=== PATIENT | male | born 1955 | race Caucasian/White ===

== ENCOUNTER 2024-09-11 11:02 | Observation (INO) | payer OTHER, MEDICARE ==
[2024-09-11] VITALS (38 sets, daily range): BP systolic 68–126; BP diastolic 35–108
[~2024-09-11] VITALS: Ht 182.9 cm; Wt 79.6 kg
--- NOTE | 2024-09-11 11:02 | NUR ---
TO ROOM VIA EMS
[2024-09-11] MEDS ORDERED: IPRATROPIUM-Albuterol 0.5MG-2.5MG/3 ML NEB ONE (11:15)
[2024-09-11] MEDS ORDERED: ASPIRIN 81 MG/TAB PO PRN (11:15)
--- NOTE | 2024-09-11 11:20 | NUR ---
AT BEDSIDE FOR DETAILED EXAM. PT RESTING ON STRTCHER O2 VIA N/C, PLACED ON SMOKE ROOM OPERATOR, HOB ELEVTED.
--- NOTE | 2024-09-11 11:31 | NUR ---
r/t, lab at bedside. pt tolerates well.
[2024-09-11 11:51] LABS: BASO% 0.1 % (0-3); EOS% 0.1 % (0-8); HEMATOCRIT 49.9 % (39.0-50.0); HEMOGLOBIN 16.3 g/dl (14.0-18.0); IMMATURE GRANULOCYTES 0.2 % (0.0-5.0); LYMPH% 10.6 % (15-41); MEAN CELL VOLUME 99.8 fL CALC (80.0-100.0); MEAN CORPUSCULAR HGB 32.6 pG CALC (26.0-32.0); MEAN CORPUSCULAR HGB CONC 32.7 g/dL CAL (32.0-36.0); MONO% 10.9 % (2-13); NEUT# 6.6 thou/uL (1.82-7.42); NEUT% 78.1 % (42-76); RED CELL DISTRI WIDTH 13.5 % (11.5-15.5)
--- NOTE | 2024-09-11 11:56 | NUR ---
R/T AT BEDSIDE, PLAN OF CARE INCLUDED BPAP. PT VERBALIZES UNDERSTANDING.
[2024-09-11 12:04] LABS: BILIRUBIN, TOTAL 1.3 mg/dL (0.2-1.3); CREATININE 0.7 mg/dL (0.7-1.3); POTASSIUM 3.8 mmol/l (3.5-5.1); TOTAL PROTEIN 7.3 g/dL (6.3-8.2)
[2024-09-11] MEDS ORDERED: SODIUM CHLORIDE 0.9% 1,000 ML IV ONE (12:15)
--- NOTE | 2024-09-11 12:15 | NUR ---
PT CONTINUES TO IMPROVE, R/T AT BEDSIDE, MONITOR IN PLACE. PT CONTINUES TO IMPROVE.
--- NOTE | 2024-09-11 12:50 | NUR ---
PT RESTING, BI-PAP CONTINUES TO MAKE PT MORE COMFORTABLE. MONITOR IN PLACE.
--- NOTE | 2024-09-11 13:30 | NUR ---
PT MEDICATED PER MD ORDER. PT CONTINUES TO IMPROVE BI-PAP IN PLACE, PT TOLERATES WELL
[2024-09-11] MEDS ORDERED: Iopamidol 370 (Isovue) 76% 100 ML SDV IV ONE (13:35)
[2024-09-11] MEDS ORDERED: LORazepam 2 MG/ML IV ONE (13:35)
[2024-09-11] MEDS ORDERED: cloNIDine HCL 0.1 MG/TAB PO ONE (13:45)
--- NOTE | 2024-09-11 13:45 | NUR ---
PT CONTINUES TO IMPOVE, PT TO C/T VIA STRETCHER R/T AT BEDSIDE. MONITOR IN PLACE, PT TOLERATES WELL.
--- NOTE | 2024-09-11 14:10 | NUR ---
PT RETURNS FROM C/T MADE COMFORTABLE.R/T AT BEDSIDE. PT CONTINUES TO IMPROVE, REMAINS ON MONITOR
--- NOTE | 2024-09-11 14:45 | NUR ---
PT REASSESSMENT COMPLETE, PT IN O ACUTE DISTRESS. PT REMAINS STABLE, MONITOR IN PLACE.
--- NOTE | 2024-09-11 15:15 | NUR ---
MD AT BEDSIDE, DETAILED EXPLAINATION OF FINDINGS, PLAN OF CARE ETC. PT DEIES QUESTION OR CONCERN. PT REMAINS STABLE.
--- NOTE | 2024-09-11 15:50 | NUR ---
R/T AT BEDSIDE, PT RESTING WITH BI-PAP IN PLACE, NO DISTRESS AT THIS TIME. MONITOR IN PLACE, PT CONDITION IMPROVING
--- NOTE | 2024-09-11 16:15 | NUR ---
TRANSPORTED PT TO ICU WITH R/T AT BEDSIDE. PT REMAINS STABLE, DENIES ANY NEEDS AT COMPLETION BEDSIDE REPORT TO STAFF, DENIES QUESTION UPON COMPLETION.
--- NOTE | 2024-09-11 16:20 | NUR ---
PT UNABLE TO PROVIDE A LIST OF HOME MEDS, PT STATES HE'LL BE ABLE TO PROVIDE IT TOMORROW
--- NOTE | 2024-09-11 16:30 | NUR ---
REPORT TO ICU STAFF, DENY QUESTIONS UPON COMPLETIN. PT CONTINUES TO IMPROVE. PT REMAINS ON BIPAP, MONITOR. DENIES ANY NEEDS AT THIS TIME.
--- NOTE | 2024-09-11 16:59 | NUR ---
PATIENT ARRIVED TO ICU VIA BED; AMBULATED TO BED WITH ASSIT; RT IN ROOM WITH PATINET; HEAD TO TOE COMPLETED; PERSONAL ITEMS IN ROOM; DENIED ANY PAIN; DENIED ANY N/V/D AT THIS TIME; IV SITE CLEAN AND INTACT RUNNING WITH NS @100; NO S.S OF DISTRESS;ARM BAND APPLIED; CALL LIGHT WITHIN REACH; BED IN LOWET POSTION;SFAETY MEASURES IN PLACE; PRODUCTIV COUGH
[2024-09-11] MEDS ORDERED: IPRATROPIUM-Albuterol 0.5MG-2.5MG/3 ML NEB PRN (17:30)
[2024-09-11] MEDS ORDERED: MAGNESIUM HYDROXIDE 30 ML UDC PO PRN (17:35)
[2024-09-11] MEDS ORDERED: SODIUM CHLORIDE 0.9% 1,000 ML IV SCH (17:35)
[2024-09-11] MEDS ORDERED: ACETAMINOPHEN 325 MG/TAB PO PRN (17:35)
[2024-09-11] MEDS ORDERED: SODIUM CHLORIDE 0.9% 1,000 ML IV PRN (17:35)
--- NOTE | 2024-09-11 17:40 | NUR ---
PATIENT BLOOD PRESSURE IS 68/44 , WRITTER STARTED BOLUSING ONE LITER OF NS; PUT PATIENT IN [place] POSTION; CALLED DR. FRANDY REDDING TO OVERRIDE FLUIDS TO BOLUS AND NOTIFY AFTER FLUIDS UPDATE ON BLOOD PRESSURE
--- NOTE | 2024-09-11 18:15 | NUR ---
RECHECKED BLOOD PRESSURE 96/60 UPDATED PROVIDER OF PATINT BLOOD PRESSURE, CONTINUED TO BOLUS AT THISTIME; DIET ORDER WAS IN PLACE AWAITING DINNER TRAY; ON 4 L ; DENIED ANY ISSUES; DENIED ANY PAIN; CALL LIGHT WITHIN REACH; BED IN LOWEST POSTION;SAFTEY MEASURES IN PLACE
--- NOTE | 2024-09-11 18:17 | NUR ---
UNABLE TO PRINT WOUND PHOTO, DAVON DOES HAVE A STAGE TWO ULCER ON HIS RIGHT SACRUM AREA; NO DRAINAGE AT THIS TIME,NO ODOR AT THIS TIME
[2024-09-11] MEDS ORDERED: AZITHROMYCIN 500 MG in SODIUM CHLORIDE 0.9% 500 ML IV SCH (20:00)
--- NOTE | 2024-09-11 20:00 | NUR ---
[id number] awakens easily. no resp distress. o2 cont per nc. hob remains elevated. school lunch monitor shows sinus rhythm. ivf infusing well. voided per urinal. supper meal given & he ate all. fall precautions cont.
[2024-09-11] MEDS ORDERED: methylPREDNISolone Sod Succ 40 MG/ML SDV IV SCH (21:00)
[2024-09-11] MEDS ORDERED: ENOXAPARIN SODIUM 40 MG/0.4 ML SYR SC SCH (21:00)
[2024-09-11 21:57] LABS: URINE BILIRUBIN - DIPSTICK Negative (NEGATIVE); URINE BLOOD DIPSTICK Negative (NEGATIVE); URINE COLOR Yellow; URINE GLUCOSE - DIPSTICK Negative (NEGATIVE); URINE KETONE Trace mg/dL (NEGATIVE); URINE LEUK ESTERASE Negative (NEGATIVE); URINE NITRITE - DIPSTICK Negative (Negative); URINE PH 5.5 (4.5-8.0); URINE PROTEIN - DIPSTICK Negative (NEG-TRACE)
--- NOTE | 2024-09-11 22:00 | NUR ---
eyes closed. no distress. manager cardiac shows sinus rhythm.
[2024-09-12] VITALS (18 sets, daily range): BP systolic 94–115; BP diastolic 58–84
--- NOTE | 2024-09-12 00:01 | NUR ---
eyes closed. no distress.
--- NOTE | 2024-09-12 02:00 | NUR ---
resting qietly. resps een & unlabored. no apparent distress.
--- NOTE | 2024-09-12 05:00 | NUR ---
lab here. blood drawn.
[2024-09-12 05:44] LABS: HEMATOCRIT 44.1 % (39.0-50.0); HEMOGLOBIN 14.5 g/dl (14.0-18.0); MEAN CELL VOLUME 100.5 fL CALC (80.0-100.0); MEAN CORPUSCULAR HGB CONC 32.9 g/dL CAL (32.0-36.0); RED BLOOD COUNT 4.39 mill/uL (4.70-6.10); RED CELL DISTRI WIDTH 13.6 % (11.5-15.5)
[2024-09-12 06:01] LABS: CREATININE 0.6 mg/dL (0.7-1.3); MAGNESIUM 1.8 mg/dL (1.6-2.3)
[2024-09-12 06:07] LABS: ALBUMIN 2.9 g/dL (3.2-5.0); BILIRUBIN, TOTAL 0.5 mg/dL (0.2-1.3); TOTAL PROTEIN 5.7 g/dL (6.3-8.2)
--- NOTE | 2024-09-12 07:11 | NUR ---
PT REPORT RECEIVED FROM SENIOR STOCK PLAN ADMINISTRATOR. VITAL SIGNS STABLE , PT SLEEPING AT THIS TIME, BUT EASILY AROUSABLE WITH VOICE. WILL CONTINUE TO MONITER
[2024-09-12] MEDS ORDERED: ALPRAZolam 0.25 MG PO PRN (08:20)
[2024-09-12] MEDS ORDERED: ASPIRIN EC 81 MG/TAB PO SCH (09:00)
--- NOTE | 2024-09-12 11:59 | NUR ---
respiratory at bedside for neb treatment., spirometry machine given to pt to use. pt alert/oriented, received fax back from [facility] and given to pharmacy.
[2024-09-12] MEDS ORDERED: VITAMIN D-32000 UNI1 PO (12:13)
[2024-09-12] MEDS ORDERED: MULTI VIT PO (12:13)
[2024-09-12] MEDS ORDERED: VENTOLIN HFA108 MCG IN (12:14)
[2024-09-12] MEDS ORDERED: PROTONIX40 MG PO (12:15)
[2024-09-12] MEDS ORDERED: TAMSULOSIN0.4 MG PO (12:15)
[2024-09-12] MEDS ORDERED: XARELTO20 MG PO (12:19)
[2024-09-12] MEDS ORDERED: CARDIZEM CD240 MG PO (12:53)
[2024-09-12] MEDS ORDERED: LISINOPRIL10 MG PO (12:54)
[2024-09-12] MEDS ORDERED: IPRATROPIUM-Albuterol 0.5MG-2.5MG/3 ML NEB SCH (15:00)
--- NOTE | 2024-09-12 15:27 | NUR ---
PT RESTING QUIETLY ON BED, WATCHING TV, DENIES ANY COMPLAINTS AT THIS TIME, VITAL SIGNS STABLE. ALERT/ORIENTED X3, STATES GETTING A LITTLE SLEEPY FROM XANAX HE REQUESTED EARLIER.
[2024-09-12] MEDS ORDERED: RIVAROXABAN 20 MG TAB PO SCH (17:30)
[2024-09-12] MEDS ORDERED: AZITHROMYCIN 500 MG in SODIUM CHLORIDE 0.9% 500 ML IV SCH (20:00)
--- NOTE | 2024-09-12 20:00 | NUR ---
RECEIVED REPORT FROM NURSE JOSE, PATIENT RESTING IN BED. TRNSFERRED FRO ICU AT 1848, IV LFA G 18 NS @ KVO, ON TELEMETRY, LUNG SOUNDS DIMINISHED, PRODUCTIVE COUGH WHITE IN COLOR, ON O2 @ 2LPM VIA NC, NOT IN DISTRESS, REQUSTING XANAX, CALL LIGHT IN REACHED.
[2024-09-12] MEDS ORDERED: guaiFENesin-CODEINE 200-20 MG/10 ML UDC PO PRN (20:45)
--- NOTE | 2024-09-12 23:00 | NUR ---
RT IN ROOM PATIENT ONGOING BREATHING TREATMENDT REMAIN SONO2 @ 4LPM VIA NC CALL LIGHT WITHIN REACHED.
[2024-09-13] VITALS (7 sets, daily range): BP systolic 101–135; BP diastolic 54–87
--- NOTE | 2024-09-13 03:29 | NUR ---
MUNANET RESTING IN BED, REMAINS ON O2 @ 4LPM VIA NC, NOT IN DISTRESS,CALL LIGHT WITHIN REACHED.
[2024-09-13 05:44] LABS: HEMATOCRIT 41.3 % (39.0-50.0); HEMOGLOBIN 13.3 g/dl (14.0-18.0); MEAN CELL VOLUME 100.5 fL CALC (80.0-100.0); MEAN CORPUSCULAR HGB 32.4 pG CALC (26.0-32.0); MEAN CORPUSCULAR HGB CONC 32.2 g/dL CAL (32.0-36.0); RED BLOOD COUNT 4.11 mill/uL (4.70-6.10); RED CELL DISTRI WIDTH 13.6 % (11.5-15.5)
[2024-09-13 06:08] LABS: ALBUMIN 2.6 g/dL (3.2-5.0); BILIRUBIN, TOTAL 0.4 mg/dL (0.2-1.3); CREATININE 0.6 mg/dL (0.7-1.3); MAGNESIUM 2.1 mg/dL (1.6-2.3); TOTAL PROTEIN 5.2 g/dL (6.3-8.2)
--- NOTE | 2024-09-13 07:22 | NUR ---
PATIENT LYING ON LEFT SIDE IN BED WITH EYES CLOSED RESTING. BREATHING UNLABORED ON 4L NC. IV IN LFA INFUSING FLUIDS PER EMAR;SITE CLEAN AND INTACT. NO SIGNS OF DISTRESS OR PAIN NOTED. PERSONAL ITEMS WELL CALL LIGHT NEAR. BED IN LOWEST POSITION. NO NEEDS AT THIS TIME.URINAL WITHIN REACH. POC ONGOING.
[2024-09-13] MEDS ORDERED: TAMSULOSIN HCL 0.4 MG CAP PO SCH (09:00)
[2024-09-13] MEDS ORDERED: PANTOPRAZOLE SODIUM Sesquihydr 40 MG/TAB PO SCH (09:00)
[2024-09-13] MEDS ORDERED: LACTULOSE 20 GM/30 ML UDC PO SCH (10:00)
--- NOTE | 2024-09-13 12:14 | NUR ---
PATIENT SITTING UP IN BED FINISHING LUNCH. BREATHING UNLABORED ON 4L NC. PT STATES TO STILL NOT BE ABLE TO HAVE A BM. ANOTHER DOSE OF MEDICATION PROVIDED PER EMAR. DENIES ANY N/D/V AT THIS TIME. IV IN LFA INFUSING FLUIDS PER EMAR;SITE CLEAN AND INTACT. PT DENIES ANY PAIN. PERSONAL ITEMS WELL CALL LIGHT WITHIN REACH. NO OTHER NEEDS AT THIS TIME. POC ONGOING.
--- NOTE | 2024-09-13 17:00 | NUR ---
PATIENT SITTING ON SIDE OF THE BED. BREATHING UNLABORED ON 4L NC. TELE INTACT. IV IN LFA INFUSING FLUIDS PER EMAR;SITE CLEAN AND INTACT. PT DENIES ANY PAIN OR N/D/V AT THIS TIME. PT STATES TO WANT A SHOWER; IV UNHOOKED AND WRAPPER. NO OTHER NEEDS AT THIS TIME. PERSONAL ITEMS WELL CALL LIGHT WITHIN REACH. BED IN LOWEST POSITION. POC ONGOING.
[2024-09-13] MEDS ORDERED: AZITHROMYCIN 500 MG in SODIUM CHLORIDE 0.9% 250 ML IV SCH (20:00)
--- NOTE | 2024-09-13 20:00 | NUR ---
RECEIVED PATIENT FROM NURSE KATERINA,PATIENT SITTING IN BED, PATIENT ALERT ORIENTED, COUGHING NOTED PRODUCTIVE THICK YELLOW IN COLOR, PATIENTY HAVING DIFFICULTY EXPECTORATING PHLEGM. PATIENT ON O2 @ 4LPM VIA NC. LUNG SOUNDS RHONCHI ON LEFT LUNG FIELD, ON TELEMETRY, EXERTYIUONLA DYSPNEA NOTED, STATED HAD BM TODAY AFTER THE LAXATIVE BUT ONLY SMALL ONE, IV DISLODGE, NEW IV INSERTED ON RFA G 22 PATENT FLUISHES WELL, CALL LIGHT WITHIN REACHED.
[2024-09-13] MEDS ORDERED: HYDROcodone 5 MG/Acetaminophen 325 MG/COMBO PO PRN (20:50)
--- NOTE | 2024-09-14 00:30 | NUR ---
PATIENT RESTING IN BED, EYES CLOSED, REMAINS N O2 @ 4LPM VIA NC, NOT IN DISTRESSM, CALL LIGHT WITHIN REACHED.
[2024-09-14 00:31] VITALS: BP 96/58
[2024-09-14 00:39] VITALS: BP 96/58
[2024-09-14 04:31] VITALS: BP 115/91
--- NOTE | 2024-09-14 04:51 | NUR ---
PATIENT RESTING IN BED,REMAINS ON O2 @ 4LPM VIA, NOT IN DISTRESS, CALL LIGHT WITHIN REACHED.
--- NOTE | 2024-09-14 05:27 | NUR ---
PATIENT BROUGGHTB DOWN FOR XRAY, PATIENT BACK IN ROOM, ON O2 @ 4LPM VIA NC.CALL LIGHT IN REACHED.
[2024-09-14 06:02] LABS: BASO% 0.1 % (0-3); HEMOGLOBIN 13.9 g/dl (14.0-18.0); IMMATURE GRANULOCYTES 1.2 % (0.0-5.0); MEAN CELL VOLUME 103.9 fL CALC (80.0-100.0); MEAN CORPUSCULAR HGB 33.6 pG CALC (26.0-32.0); MEAN CORPUSCULAR HGB CONC 32.3 g/dL CAL (32.0-36.0); MONO% 4.3 % (2-13); NEUT# 7.61 thou/uL (1.82-7.42); NEUT% 83.3 % (42-76); RED BLOOD COUNT 4.14 mill/uL (4.70-6.10); RED CELL DISTRI WIDTH 13.6 % (11.5-15.5)
[2024-09-14 06:24] LABS: ALBUMIN 2.6 g/dL (3.2-5.0); BILIRUBIN, TOTAL 0.4 mg/dL (0.2-1.3); CREATININE 0.6 mg/dL (0.7-1.3); MAGNESIUM 2.3 mg/dL (1.6-2.3); TOTAL PROTEIN 5.1 g/dL (6.3-8.2)
[2024-09-14 06:26] LABS: LYMPH% 11.1 % (15-41)
[2024-09-14 06:29] LABS: POTASSIUM 4.9 mmol/l (3.5-5.1)
[2024-09-14 06:50] VITALS: BP 106/74
--- NOTE | 2024-09-14 09:05 | NUR ---
Pt is alert times 4. pt admitting dx is failure on bipap and bilateral PNA. Pt continues on 4 liters of 02 via nasal cannula. Pt has a productive cough . pt breathing treatment was administer by RT with positive effect. pt call cross is with in reach all safety measures in place. pt needs are met at this time. nursing will continue to monitor.
[2024-09-14] MEDS ORDERED: OMNICEF300 MG PO (10:16)
[2024-09-14] MEDS ORDERED: PREDNISONE10 MG PO (10:19)
[2024-09-14 10:53] VITALS: BP 110/76
[2024-09-14 12:00] VITALS: BP 120/88
--- NOTE | 2024-09-14 12:53 | NUR ---
Discharge instructions given. Patient verbalizes understanding of same. Discharged in good condition via Ambulatory to Home with *Other. All belongings sent with pt.
--- NOTE | 2024-09-14 14:09 | NUR ---
Discharge instructions given. Patient verbalizes understanding of same. Discharged in good condition via Wheelchair to Home with family. All belongings sent with pt. PT RECIEVE HIS LAST IV ABT DOSE PRIOR TO DISCHARGE. PT IV WAS REMOVED FROM HIS LEFT A/C PRIOR TO DISCHARGES
== END 2024-09-14 13:38 | disposition home health service (06) | DRG 193 ==
LOC: ED 11:02 → ED-I 13:21 → ED 14:56 → ICU 14:57 → MS2 14:57
PROVIDERS: Family Medicine; Nurse Practitioner Family; ADMIT Internal Medicine; ATTEND Internal Medicine
PROC: 5A09357 Assistance with Respiratory Ventilation, Less than 24 Consecutive Hours, Continuous Positive Airway Pressure (ICD-10-PCS; principal; 2024-09-11)
DX: J18.9 Pneumonia, unspecified organism (principal); J96.21 Acute and chronic respiratory failure with hypoxia; I27.82 Chronic pulmonary embolism; J44.0 Chronic obstructive pulmonary disease with (acute) lower respiratory infection; J44.1 Chronic obstructive pulmonary disease with (acute) exacerbation; I10 Essential (primary) hypertension; I25.10 Atherosclerotic heart disease of native coronary artery without angina pectoris; I73.9 Peripheral vascular disease, unspecified; Z79.01 Long term (current) use of anticoagulants; Z87.891 Personal history of nicotine dependence; Z99.81 Dependence on supplemental oxygen; Z86.718 Personal history of other venous thrombosis and embolism; Z95.5 Presence of coronary angioplasty implant and graft
CPT/HCPCS: J0456; J0696; J1650; J2060; Q9967